=== PATIENT | female | born 1965 | race American Indian/Alaskan Native ===

== ENCOUNTER 2023-02-19 07:13 | Emergency (ER) | payer SELFPAY ==
[2023-02-19] MEDS ORDERED: CEFDINIR300 MG PO (08:25)
[2023-02-19] MEDS ORDERED: ONDANSETRON ODT8 MG PO (08:25)
[2023-02-19 08:44] VITALS: BP 177/82
== END 2023-02-19 08:44 | disposition home or self-care (01) ==
LOC: ED 07:13
DX: N12 Tubulo-interstitial nephritis, not specified as acute or chronic (principal)
CPT/HCPCS: 36415; 74177; 80053; 81001; 85025; J2405; J7121; Q9967